=== PATIENT | female | born 1985 ===

== ENCOUNTER 2022-04-05 10:08 | Emergency (ER) | payer OTHER ==
[2022-04-05] MEDS ORDERED: NAPROSYN500 MG PO (11:53)
[2022-04-05] MEDS ORDERED: CYCLOBENZAPRINE10 MG PO (11:53)
== END 2022-04-05 12:25 | disposition home or self-care (01) ==
LOC: ER1 10:08
DX: S20.212A Contusion of left front wall of thorax, initial encounter (principal); S40.012A Contusion of left shoulder, initial encounter; S10.91XA Abrasion of unspecified part of neck, initial encounter; Z91.040 Latex allergy status; V43.52XA Car driver injured in collision with other type car in traffic accident, initial encounter; Y92.410 Unspecified street and highway as the place of occurrence of the external cause
CPT/HCPCS: 71046; 71100; 73030; 99283